=== PATIENT | female | born 1980 | race Caucasian/White ===

== ENCOUNTER → 2016-10-06 | Day surgery (SDC) | payer MEDICARE, MEDICAID ==
[~2016-10-06] MED LIST: ALBU2.5V5 IH; ATOR40TA PO; AZAT50TA20 PO; BENZ100C PO; FLUT1DIS3 IH; FLUT9.9S NS; HYDROmorphone 2 MG/ML VIAL IV PRN; IBUP200T43 PO; INFL100V IV; IV RINGERS,LACTATED 1000ML 1,000 ML IV SCH; LIDOCAINE 1% 1 ML SYRINGE. ID PRN; LISI-373 PO; LISI1TAB3 PO; MONT10TA6 PO; MORPHINE SULFATE 2 MG/ML DISP.SYRIN. IV PRN; ONDANSETRON PF 4 MG/2 ML VIAL. IV PRN; OXYC-323 PO; PRED10TA16 PO; PROCHLORPERAZINE 10 MG/2 ML VIAL. IV PRN; PROPOFOL 40 ML IV ONE; PROVENTIL HFA6.7 GM; VENTOLIN HFA18 GM INH; fentaNYL PF VIAL 100 MCG/2 ML VIAL IV PRN
--- NOTE | 2016-10-06 07:59 | PDOC ---
G I PROGRESS NOTE Reason for Follow-up Crohns colitis surveillance on biologic therapy and imuran. No extra-intestinal manifestations of IBD at t his time. . Subjective tolerated prep Physical Exam lungs clear cv s1 s2 abd +bs soft, nontender Review of Relevant I have reviewed the following items ammon (where applicable) has been applied. Medications Current Medications Ondansetron HCl (Zofran) 4 mg PRN Q6HRS PRN IV NAUSEA/VOMITING; Start 10/06/16 at 07:00; Stop 10/07/16 at 06:59 Fentanyl Citrate (Fentanyl 2ml Vial) 25 mcg PRN Q5MIN PRN IV MILD PAIN; Start 10/06/16 at 07:00; Stop 10/07/16 at 06:59 Fentanyl Citrate (Fentanyl 2ml Vial) 50 mcg PRN Q5MIN PRN IV MODERATE PAIN; Start 10/06/16 at 07:00; Stop 10/07/16 at 06:59 Morphine Sulfate 1 mg PRN Q10MIN PRN IV SEVERE PAIN; Start 10/06/16 at 07:00; Stop 10/07/16 at 06:59 Ringer's Solution 1,000 ml @ 30 mls/hr Q24H IV Last administered on 10/06/16t 06:58; Start 10/06/16 at 07:00; Stop 10/07/16 at 06:59 Lidocaine HCl 2 ml PRN 1X PRN ID PRIOR TO IV START; Start 10/06/16 at 07:00; Stop 10/07/16 at 06:59 Hydromorphone HCl (Dilaudid) 0.5 mg PRN Q10MIN PRN IV SEV PAIN, Second choice; Start 10/06/16 at 07:00; Stop 10/07/16 at 06:59 Prochlorperazine Edisylate (Compazine) 5 mg PACU PRN PRN IV NAUSEA, MRX1; Start 10/06/16 at 07:00; Stop 10/07/16 at 06:59 Propofol 40 ml @ As Directed STK-MED ONCE IV ; Start 10/06/16 at 07:50; Stop 10/06 at 07:51; Status DC Active Scripts Active Ventolin Hfa Inhaler (Albuterol Sulfate) 18 Gm Hfa.aer.ad 2 Puff INH Q4HRS Lisinopril-Hctz 10-12.5 Mg Tab (Lisinopril/Hydrochlorothiazide) 1 Each Tablet 1 Tab PO DAILY Flonase Allergy Relief (Fluticasone Propionate) 9.9 Ml [place].susp 2 Sprays NS DAILY Tessalon Perle (Benzonatate) 100 Mg Capsule 100 Mg PO TID PRN Reported Prednisone Pack (Prednisone) 10 Mg Tab.ds.pk 10 Mg PO DAILY Percocet 5-325 Mg Tablet (Oxycodone/Acetaminophen) 1 Each Tablet 1 Each PO PRN Q6HRS Singulair Tablet (Montelukast Sodium) 10 Mg Tablet 10 Mg PO DAILY Zestoretic 10-12.5 Mg Tablet (Lisinopril/Hydrochlorothiazide) 1 Each Tablet 1 Each PO DAILY Motrin Ib (Ibuprofen) 200 Mg Tablet 200 Mg PO PRN DAILY Advair 250-50 Diskus (Fluticasone/Salmeterol) 1 Each Disk.w.dev 1 Each IH DAILY Imuran (Azathioprine) 50 Mg Tablet 50 Mg PO DAILY Lipitor (Atorvastatin Calcium) 40 Mg Tablet 40 Mg PO DAILY Proventil Hfa Inhaler (Albuterol Sulfate) 6.7 Gm Hfa.aer.ad 90 Mcg .ROUTE PRN Q6HRS Albuterol Sulfate Neb Soln (Albuterol Sulfate) 2.5 Mg/3 Ml Vial.neb 2.5 Mg IH PRN Q6HRS Remicade (Infliximab) 100 Mg Vial 10 / IV Q6WKS Vitals/I & O Vital Sign - Last 24 Hours 10/06/16 06:52 Temp 97.8 97.8 Pulse 101 Resp 20 Pulse Ox 96 Problem List Crohns colitis- surveillance colonoscopy at this time with biopsies for dysplasia. R/b discussed with patient who is willing to proceed. MARIANA SKY MD Oct 06, 2016 07:59
[2016-10-06 08:48] VITALS: BP 126/84
--- NOTE | 2016-10-08 13:44 | PATHOLOGY ---
PATHOLOGY REPORT * * * * * * * * FINAL DIAGNOSIS: A. Colonic mucosa, right colon biopsy: - No significant pathologic abnormalities, with multiple mucosal associated lymphoid aggregates. B. Colonic mucosa, transverse colon biopsy: - No significant pathologic abnormalities, with multiple mucosal associated lymphoid aggregates. C. Colonic mucosa, left colon biopsies: - No significant pathologic abnormalities, with multiple mucosal associated lymphoid aggregates. COMMENT: Sections of the right colon, transverse colon, and left colon biopsies appear similar and reveal segments of colonic mucosa containing multiple, focally hyperplastic, mucosal associated lymphoid aggregates. There is no evidence of a chronic destructive colitis, lymphocytic colitis, or collagenous colitis. (JPM:mgr; 10/08/2016) REPORT ELECTRONICALLY SIGNED BY: Rios Orosco M.D. DATE/TIME: 10/08/2016 13:43 * * * * * * * * GROSS PATHOLOGY: A. Received in formalin labeled "Maxine Gilbert," are more than 10 segments of juarez soft tissue measuring 5.0 x 0.2 x 0.2 cm in aggregate dimensions and ranging from 0.2 to 0.7 cm in maximum dimension. The specimen is submitted entirely in cassette A1. B. Received in formalin labeled " Maxine Gilbert, transverse colon BX," are 9 segments of juarez soft tissue measuring 1.2 x 0.4 x 0.3 cm in aggregate dimensions and ranging from 0.2 to 0.6 cm in maximum dimension. The specimen is submitted entirely in cassette B1. C. Received in formalin labeled " Maxine Gilbert, left colon BX," are 7 segments of juarez soft tissue measuring 2.2 x 0.4 x 0.2 cm in aggregate dimensions and ranging from 0.2 to 0.6 cm in maximum dimension. The specimen is submitted entirely in cassette C1. (BERTO; 10/07/2016) INITIAL CPT CODE(S): A; 18182 B; 71623 C; 88924 Professional services performed by [facility] at [address] [address] Technical services performed by [facility] at [address] [place] [address], [address], [place] [address]. SPECIMEN(S) RECEIVED: A.Right colon biopsy B.Transverse colon biopsy C.Left colon biopsy CLINICAL HISTORY: History of Crohns PATIENT: CHARLENE GILBERTLakisha Rojo /AGE: 205/14/1980 (Age: 36) PATIENT #: [id number] ALT CASE #: SPECIMEN COLLECTION DATE: 10/06/2016 SPECIMEN RECEIVED DATE: 10/06/2016 [facility] - [address] [place] [address] - PHONE: [phone] * * * END OF REPORT * * *
== END | disposition home or self-care (01) ==
LOC: ENDOS 06:15
PROVIDERS: ATTEND Internal Medicine Gastroenterology
DX: K50.80 Crohn's disease of both small and large intestine without complications (principal); K64.0 First degree hemorrhoids; E78.00 Pure hypercholesterolemia, unspecified; I10 Essential (primary) hypertension; J45.909 Unspecified asthma, uncomplicated; Z98.51 Tubal ligation status; Z90.710 Acquired absence of both cervix and uterus; Z87.39 Personal history of other diseases of the musculoskeletal system and connective tissue; Z88.1 Allergy status to other antibiotic agents; Z88.0 Allergy status to penicillin
CPT/HCPCS: 45380; 88305; J2704